=== PATIENT | female | born 1980 | race Two or more races ===

== ENCOUNTER 2023-04-16 07:56 | Outpatient (CLI) | payer OTHER ==
[~2023-04-16 07:56] MED LIST: HORIZANT600 MG PO
== END 2023-04-16 08:05 | disposition home or self-care (01) ==
LOC: LAB 07:56
PROVIDERS: ATTEND Orthopaedic Surgery
DX: D64.89 Other specified anemias (principal); E88.89 Other specified metabolic disorders; D68.8 Other specified coagulation defects; N39.0 Urinary tract infection, site not specified; Z22.322 Carrier or suspected carrier of Methicillin resistant Staphylococcus aureus; E11.9 Type 2 diabetes mellitus without complications; I49.9 Cardiac arrhythmia, unspecified; I10 Essential (primary) hypertension; Z76.89 Persons encountering health services in other specified circumstances

== ENCOUNTER 2023-05-20 13:04 | Outpatient (CLI) | payer OTHER | END 2023-05-20 13:13 | disposition home or self-care (01) | LOC: LAB 13:04 | PROVIDERS: ATTEND Orthopaedic Surgery | DX: M25.48 Effusion, other site (principal) ==

== ENCOUNTER 2023-05-26 14:08 | Outpatient (CLI) | payer OTHER | END 2023-05-26 14:22 | disposition home or self-care (01) | LOC: RAD 14:08 | PROVIDERS: ATTEND Orthopaedic Surgery | DX: M79.672 Pain in left foot (principal) ==